=== PATIENT | male | born 1965 | race Caucasian/White ===

== ENCOUNTER 2021-09-24 19:15 | Emergency (ER) | payer BC ==
[~2021-09-24] VITALS: Ht 177.8 cm; Wt 77.0 kg
[2021-09-24] MEDS ORDERED: HYDROcodone/APAP 5/325MG 1 TAB TABLET PO ONE (20:00)
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
--- NOTE | 2021-09-24 20:51 | RAD ---
Exam: Chest one view INDICATION: Clavicle fracture TECHNIQUE: Frontal view of the chest Comparisons: None FINDINGS: The cardiomediastinal silhouette and pulmonary vessels are within normal limits. The lung and pleural spaces are clear. Redemonstration of mildly displaced mid right clavicle fracture. IMPRESSION: No acute cardiopulmonary process. Electronically signed by: Anjelica Levine MD (09/24/2021 8:49 PM) TANIKA
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
[2021-09-24 21:23] VITALS: BP 99/56
[2021-09-24] MEDS ORDERED: POLY17PO5 PO (21:50)
[2021-09-24] MEDS ORDERED: OXYC10TA46 PO (21:50)
== END 2021-09-24 22:00 | disposition home or self-care (01) ==
LOC: ER 19:15
DX: S42.021A Displaced fracture of shaft of right clavicle, initial encounter for closed fracture (principal); V28.9XXA Unspecified motorcycle rider injured in noncollision transport accident in traffic accident, initial encounter; Y93.89 Activity, other specified; Y92.89 Other specified places as the place of occurrence of the external cause; Y99.8 Other external cause status
CPT/HCPCS: 71045; 73000; 99284

== ENCOUNTER → 2021-10-21 | Outpatient (CLI) | payer BC ==
[2021-09-24 21:23] VITALS: BP 99/56
[~2021-10-21] MED LIST: OXYC10TA46 PO; POLY17PO5 PO
--- NOTE | 2021-10-22 08:38 | RAD ---
Exam: XR RIGHT CLAVICLE History: Follow-up clavicle fracture Comparison: 09/24/2021 Findings: Osseous mineralization is normal. There is redemonstrated comminuted fracture of the right clavicle w ith apex cranial angulation. No callus identified. No pneumothorax. Visualized right lung is clear. N ormal alignment at the acromioclavicular and glenohumeral joints. Impression: 1. Stable appearance of comminuted right clavicle fracture. Electronically signed by: Russell Bautista MD (10/22/2021 8:36 AM) [id number]
== END ==
LOC: RAD 15:27
PROVIDERS: ATTEND Physician Assistant
DX: S42.001D Fracture of unspecified part of right clavicle, subsequent encounter for fracture with routine healing (principal); M89.8X1 Other specified disorders of bone, shoulder; X58.XXXD Exposure to other specified factors, subsequent encounter
CPT/HCPCS: 73000